=== PATIENT | male | born 1955 | race Caucasian/White ===

== ENCOUNTER → 2017-01-17 | Outpatient (CLI) | payer OTHER ==
[~2017-01-17] MED LIST: ASPI-496 PO; ATOR20TA PO; CARV6.2512 PO; METO50TA82 PO
== END | disposition home or self-care (01) ==
LOC: CVU 10:02
PROVIDERS: ATTEND Internal Medicine Cardiovascular Disease
DX: I08.0 Rheumatic disorders of both mitral and aortic valves (principal); I25.10 Atherosclerotic heart disease of native coronary artery without angina pectoris; I10 Essential (primary) hypertension; F17.200 Nicotine dependence, unspecified, uncomplicated; Z95.5 Presence of coronary angioplasty implant and graft
CPT/HCPCS: 93306

== ENCOUNTER 2018-05-06 10:30 | Emergency (ER) | payer OTHER ==
[~2018-05-06] VITALS: Ht 182.9 cm; Wt 82.0 kg
[2018-05-06 10:48] VITALS: BP 137/100
[2018-05-06] MEDS ORDERED: GABA300C10 PO (11:59)
[2018-05-06] MEDS ORDERED: AMLO10TA4 PO (11:59)
[2018-05-06] MEDS ORDERED: BUPR300T4 PO (11:59)
[2018-05-06] MEDS ORDERED: CLON2TAB9 PO (11:59)
[2018-05-06] MEDS ORDERED: ASPI-515 PO (11:59)
[2018-05-06] MEDS ORDERED: HYDR-3237 PO (11:59)
[2018-05-06] MEDS ORDERED: MIRT15TA4 PO (11:59)
[2018-05-06] MEDS ORDERED: NABU750T PO (11:59)
== END 2018-05-06 12:26 | disposition home or self-care (01) ==
LOC: ED 12:15
DX: S39.012A Strain of muscle, fascia and tendon of lower back, initial encounter (principal); S30.0XXA Contusion of lower back and pelvis, initial encounter; E78.5 Hyperlipidemia, unspecified; I10 Essential (primary) hypertension; F17.200 Nicotine dependence, unspecified, uncomplicated; W19.XXXA Unspecified fall, initial encounter; Y93.89 Activity, other specified; Y99.8 Other external cause status; Y92.89 Other specified places as the place of occurrence of the external cause
CPT/HCPCS: 72110; 99284

== ENCOUNTER 2018-09-22 06:44 | Emergency (ER) | payer OTHER ==
[~2018-09-22] VITALS: Ht 182.9 cm; Wt 83.0 kg
[~2018-09-22 06:44] MED LIST changes: +AMLO10TA4 PO; +ASPI-515 PO; +BUPR300T4 PO; +CLON2TAB9 PO; +GABA300C10 PO; +HYDR-3237 PO; +MIRT15TA4 PO; +NABU750T PO
[2018-09-22 06:45] VITALS: BP 118/77
--- NOTE | 2018-09-22 06:57 | NUR ---
Dr. Montiel at bedside to evaluate pt. Pt c/o sneezing, body aches, and yellow sputum x2 days. Pt states was told by his PCP that he has allergies. Pt sitting up in bed, speaking in full sentences, resp even and unlabored, NADSilvia.
[2018-09-22 07:50] LABS: RAPID INFLUENZA A Negative (Negative); RAPID INFLUENZA B Negative (Negative)
--- NOTE | 2018-09-22 08:15 | NUR ---
Dr. Montiel at bedside to discuss POC with pt.
== END 2018-09-22 08:23 | disposition home or self-care (01) ==
LOC: ED 08:17
DX: J00 Acute nasopharyngitis [common cold] (principal); B97.89 Other viral agents as the cause of diseases classified elsewhere; I10 Essential (primary) hypertension; E78.5 Hyperlipidemia, unspecified; G89.29 Other chronic pain
CPT/HCPCS: 87400; 99283

== ENCOUNTER → 2020-07-19 | Outpatient (CLI) | payer OTHER ==
[~2020-07-19] MED LIST changes: -BUPR300T4 PO; +BUPR300T94 PO; +MIRT-34 PO; -MIRT15TA4 PO; -NABU750T PO; +NABU750T7 PO
== END | disposition home or self-care (01) ==
LOC: CFH 15:36
PROVIDERS: ATTEND Internal Medicine Cardiovascular Disease
DX: I08.2 Rheumatic disorders of both aortic and tricuspid valves (principal); E78.5 Hyperlipidemia, unspecified; I25.2 Old myocardial infarction; I25.10 Atherosclerotic heart disease of native coronary artery without angina pectoris; I11.9 Hypertensive heart disease without heart failure; F17.200 Nicotine dependence, unspecified, uncomplicated
CPT/HCPCS: 93306